=== PATIENT | male | born 1995 | race African-American/Black ===

== ENCOUNTER 2019-01-11 06:18 | Day surgery (SDC) | payer OTHER ==
[~2019-01-11] VITALS: Ht 160 cm; Wt 61.5 kg
[~2019-01-11 06:18] MED LIST: BUPIVAC MPF-EPI 0.5%-1:200000 30 ML VIAL. INJ ONE
[2019-01-11] MEDS ORDERED: ALBU2.5V8 INH (06:48)
[2019-01-11] MEDS ORDERED: PROCHLORPERAZINE 10 MG/2 ML VIAL. IV PRN (07:00)
[2019-01-11] MEDS ORDERED: MORPHINE SULFATE 2 MG/ML VIAL. IV PRN (07:00)
[2019-01-11] MEDS ORDERED: LIDOCAINE 1% PF 2 ML VIAL. ID PRN (07:00)
[2019-01-11] MEDS ORDERED: ONDANSETRON PF 4 MG/2 ML VIAL. IV PRN (07:00)
[2019-01-11] MEDS ORDERED: IV RINGERS,LACTATED 1000ML 1,000 ML IV SCH (07:00)
[2019-01-11] MEDS ORDERED: HYDROmorphone 2 MG/ML VIAL IV PRN (07:00)
[2019-01-11] MEDS ORDERED: fentaNYL PF VIAL 100 MCG/2 ML VIAL IV PRN ×2 (07:00)
--- NOTE | 2019-01-11 07:33 | PDOC1 ---
History and Physical Date of Admission Date of Admission DATE: 01/11/19 TIME: 07:30 Identification/Chief Complaint Chief Complaint right inguinal hernia Source Source: Chart review, Patient History of Present Illness History of Present Illness Carmel is a 23 yo male inmate with a large right inguinal hernia. Past Medical History Cardiovascular: No pertinent hx Pulmonary: Asthma GI: No pertinent hx Past Surgical History Past Surgical History: No pertinent history Family History Family History: No Significant Social History Smoke: No ALCOHOL: none Drugs: None Current Medications Current Medications Current Medications Ondansetron HCl (Zofran) 4 mg PRN Q6HRS PRN IV NAUSEA/VOMITING; Start 01/11/19 at 07:00; Stop 01/12/19 at 06:59 Fentanyl Citrate (Fentanyl 2ml Vial) 25 mcg PRN Q5MIN PRN IV MILD PAIN 1-3; Start 01/11/19 at 07:00; Stop 01/12/19 at 06:59 Fentanyl Citrate (Fentanyl 2ml Vial) 50 mcg PRN Q5MIN PRN IV MODERATE TO SEVERE PAIN; Start 01/11/19 at 07:00; Stop 01/12/19 at 06:59 Morphine Sulfate (Morphine Sulfate) 1 mg PRN Q10MIN PRN IV SEVERE PAIN 7-10; Start 01/11/19 at 07:00; Stop 01/12/19 at 06:59 Ringer's Solution 1,000 ml @ 30 mls/hr Q24H IV Last administered on 01/11/19at 06:49; Start 01/11/19 at 07:00; Stop 01/11/19 at 18:59 Lidocaine HCl (Xylocaine-Mpf 1% 2ml Vial) 2 ml PRN 1X PRN ID PRIOR TO IV START; Start 01/11/19 at 07:00; Stop 01/12/19 at 06:59 Hydromorphone HCl (Dilaudid) 0.5 mg PRN Q10MIN PRN IV SEV PAIN, Second choice; Start 01/11/19 at 07:00; Stop 01/12/19 at 06:59 Prochlorperazine Edisylate (Compazine) 5 mg PACU PRN PRN IV NAUSEA, MRX1; Start 01/11/19 at 07:00; Stop 01/12/19 at 06:59 Cefazolin Sodium 50 ml @ 100 mls/hr 1X PREOP PRN IV PRIOR TO SURGERY; Start 01/11/19 at 06:00 Bupivacaine HCl/ Epinephrine Bitart (Sensorcain-Mpf Epi 0.5%-1:117809) 30 ml 1X ONCE INJ ; Start 01/11/19 at 06:00; Stop 01/11/19 at 06:01; Status DC Active Scripts Active Reported Proair Hfa Inhaler (Albuterol Sulfate) 8.5 Gm Hfa.aer.ad 2 Puff INH BID PRN Allergies Allergies: Coded Allergies: No Known Drug Allergies (Unverified , 01/11/19) ROS Review of System negative with exception of present complaints Physical Exam General: Alert, No acute distress HEENT: Atraumatic Lungs: Normal air movement Heart: RRR Abdomen: Soft Male Genitals Exam: hernia (right inguinal) Extremities: No clubbing Neuro: Normal speech Vitals Vitals Vital Signs Date Time Temp Pulse Resp B/P (MAP) Pulse Ox O2 Delivery O2 Flow Rate FiO2 01/11/19 06:46 97.3 69 18 118/57 97 Room Air 97.3 VTE Prophylaxis Ordered VTE Prophylaxis Devices: Yes VTE Pharmacological Prophylaxi: No Assessment/Plan Assessment/Plan right inguinal hernia explained risks of repair including but not limited to bleeding, infection, recurrence, numbness, chronic pain \ he will proceed ALYSSA SIMONS MD Jan 11, 2019 07:33
[2019-01-11] MEDS ORDERED: ONDANSETRON PF 4 MG/2 ML VIAL. ONE (08:22)
[2019-01-11] MEDS ORDERED: DEXAMETHASONE SOD PHOS 4 MG/ML VIAL ONE (08:22)
[2019-01-11] MEDS ORDERED: LIDOCAINE 2% PF 5 ML VIAL. ONE (08:22)
[2019-01-11] MEDS ORDERED: PROPOFOL 20 ML IV ONE ×2 (08:22)
[2019-01-11] MEDS ORDERED: KETOROLAC 30 MG/ML INJ FOR OR. INJ ONE (08:22)
[2019-01-11] MEDS ORDERED: PHENYLEPHRINE in 0.9% NACL PF 1 MG/10 ML SYRINGE. IV ONE (08:22)
[2019-01-11] MEDS ORDERED: SEVOFLURANE 31 TO 60 MINUTES. IH ONE (08:23)
--- NOTE | 2019-01-11 09:56 | PDOC ---
BRIEF OPERATIVE NOTE Date: Jan 11, 2019 Pre-Op Diagnosis right inguinal hernia Post-Op Diagnosis same, indirect Procedure Performed repair with mesh Surgeon Laron Molder Bench Una GUTIÉRREZ Anesthesia Type: General (LMA) Blood Loss 25cc IV Fluid 1000cc Specimens Obtained none Findings large indirect sack, lax floor Complications none Operative Note Wk # [id number] ALYSSA SIMONS MD Jan 11, 2019 09:56
--- NOTE | 2019-01-11 10:17 | DISCH ---
DISCHARGE INSTRUCTIONS Condition on Discharge Condition on Discharge: Stable Activity After Discharge Activity Instructions for Disc: Activity as tolerated Lifting Instructions after Dis: No heavy lifting Diet after Discharge Diet after Discharge: Regular Wound Incision Care Wound/Incision Care: Ice to area for comfort Other wound/incision instructi: september showfriday Follow-Up Follow Up With: Laron two weeks ALYSSA SIMONS MD Jan 11, 2019 10:17
[2019-01-11 10:38] VITALS: BP 121/82
--- NOTE | 2019-01-11 10:50 | OP ---
DATE OF SURGERY: 01/11/2019 PREOPERATIVE DIAGNOSIS: Right inguinal hernia. POSTOPERATIVE DIAGNOSIS: Right inguinal hernia, indirect. PROCEDURE: Repair with mesh. SURGEON: Virgilio Simons MD CLEAT BLANKER: BROCK Hansen. ANESTHESIA: General LMA. ESTIMATED BLOOD LOSS: 25. IV FLUID: 1 liter. DESCRIPTION OF PROCEDURE: The patient brought to the operating suite, given a general LMA. The right groin was prepped and draped in usual sterile fashion. A 0.5% Marcaine with epinephrine was infiltrated along the incision line. Incision made and dissection carried down to the external oblique fascia. This was opened along the direction of the fibers, extended through the external ring. Cord swept off the pubis. Gera drain placed around it and dissection carried back to the internal ring where a large indirect sac was identified, skeletonized and reduced. This was of a size that the sac was partially resected to allow reduction of the neck. This was held in reduction with a large plug of Phasix mesh, tacked with a 2-0 PDS. A keyhole patch was placed over the floor of the canal after it was imbricated with an 0 Vicryl. Slit closed with a single stitch. Area checked for hemostasis. When present and a correct sponge count was obtained, the cord was returned to its normal anatomical position. External oblique fascia closed over it in running fashion with 3-0 Vicryl. SubQ approximated with 3-0 Vicryl, skin closed with a subcuticular 4-0 Monocryl. Steri-Strips and sterile dressings applied. The patient was awakened from his anesthetic and taken to the recovery room in satisfactory condition. VIRGILIO SIMONS MD DR: STEPHEN/shelley JOB#: [id number] / [id number]
--- NOTE | 2019-01-13 13:07 | PATHOLOGY ---
[facility] Accession Number: [id number] . 01 Material submitted: . hernia - HERNIA SAC . 01 Clinical history: . Inguinal hernia . 02 Diagnosis: Segment of focal mesothelial-lined fibromembranous and fibroadipose tissue, inguinal hernia repair: - Hernia sac. . (JPM:mm; 01/13/2019) QL/01/13/2019 . 02 Electronically signed: . Zachary Edwards MD, Pathologist NPI- [id number] . 01 Gross description: . The specimen is received in formalin, labeled "Carmel Dias, hernia sac". Received is a segment of fibromembranous tissue with attached lobulated tissue measuring 11.5 x 6.6 x 2.9 cm in greatest dimensions. No distinct nodules or lesions are noted grossly. The specimen is submitted representatively in cassette A1. (CAA; 01/12/2019) QAC/QAC . 02 Pathologist provided ICD-10: K40.90 . 02 CPT . 540569 Specimen Comment: A courtesy copy of this report has been sent to Specimen Comment: [phone]. Specimen Comment: Report sent to Performed at: 01 [facility] [address] [facility] [address], [place] [id number] [address] Smart MD Phone: [phone] Performed at: 02 [facility] [place] [address] [place], [place] [id number] MD Zachary Edwards MD Phone: [phone]
== END 2019-01-11 10:40 | disposition home or self-care (01) ==
LOC: SURG 06:18 → EEVIPCON 08:00 → SURG 10:40
PROVIDERS: ATTEND Surgery
DX: K40.90 Unilateral inguinal hernia, without obstruction or gangrene, not specified as recurrent (principal); J45.909 Unspecified asthma, uncomplicated
CPT/HCPCS: 49505; A7015; C1781; J0690; J1100; J1885; J2001; J2405; J2704; J3490; J2370